=== PATIENT | female | born 1970 | race Caucasian/White ===

== ENCOUNTER 2017-10-31 15:18 | Emergency (ER) | payer SELFPAY ==
[~2017-10-31] VITALS: Ht 170.2 cm; Wt 76.2 kg
[2017-10-31 15:34] VITALS: Ht 170.2 cm; Wt 76.2 kg
[2017-10-31 19:25] VITALS: BP 124/74
== END 2017-10-31 19:25 | disposition home or self-care (01) ==
LOC: ED 15:18
DX: M79.671 Pain in right foot (principal); G89.29 Other chronic pain
CPT/HCPCS: Q0092

== ENCOUNTER 2020-01-16 00:05 | Emergency (ER) | payer SELFPAY ==
[~2020-01-16] VITALS: Ht 162.6 cm; Wt 73.9 kg
[2020-01-16 00:15] VITALS: Ht 162.6 cm; Wt 73.9 kg
[2020-01-16 00:45] VITALS: BP 130/65
== END 2020-01-16 00:45 | disposition home or self-care (01) ==
LOC: ED 00:05
DX: K08.89 Other specified disorders of teeth and supporting structures (principal); H65.91 Unspecified nonsuppurative otitis media, right ear; Z98.890 Other specified postprocedural states